=== PATIENT | male | born 1970 | race Caucasian/White ===

== ENCOUNTER 2018-06-01 12:45 | Emergency (ER) | payer OTHER ==
[~2018-06-01] VITALS: Ht 198.1 cm; Wt 134.1 kg
[2018-06-01 12:49] VITALS: Ht 198.1 cm; Wt 134.1 kg
[2018-06-01] MEDS ORDERED: GLUCOPHAGE1000 MG PO (12:51)
[2018-06-01] MEDS ORDERED: ZESTRIL20 MG PO (12:51)
[2018-06-01] MEDS ORDERED: TENORMIN25 MG PO (12:51)
[2018-06-01] MEDS ORDERED: BAYER CHEWABLE81 MG PO (12:52)
[2018-06-01] MEDS ORDERED: FISH OIL 1,0001 CA1 PO (12:52)
[2018-06-01] MEDS ORDERED: FENOFIBRATE160 MG PO (12:52)
[2018-06-01 16:00] VITALS: BP 136/87
== END 2018-06-01 16:00 | disposition home or self-care (01) ==
LOC: D.ER 12:45
DX: S16.1XXA Strain of muscle, fascia and tendon at neck level, initial encounter (principal); V43.52XA Car driver injured in collision with other type car in traffic accident, initial encounter; Y93.89 Activity, other specified; Y92.410 Unspecified street and highway as the place of occurrence of the external cause; M25.512 Pain in left shoulder; E11.9 Type 2 diabetes mellitus without complications; I10 Essential (primary) hypertension